=== PATIENT | female | born 1960 | race African-American/Black ===

== ENCOUNTER 2021-09-15 07:43 | Emergency (ER) | payer MEDICARE, MEDICAID ==
[~2021-09-15] VITALS: Ht 165.1 cm; Wt 73.0 kg
[2021-09-15] MEDS ORDERED: FAMOTIDINE 20MG/2ML VIAL IV STA (08:37)
[2021-09-15] MEDS ORDERED: MORPHINE SULFATE 4 MG/ML CPJ (NOT FOR IM USE) IV STA (08:37)
[2021-09-15] MEDS ORDERED: ONDANSETRON HCL 4MG/2ML INJ IV STA (08:37)
[2021-09-15] MEDS ORDERED: SODIUM CHLORIDE 0.9% 1,000 ML IV ONE (08:45)
[2021-09-15 09:19] LABS: BASOPHILS % 0.4 % (0.0-2.0); EOSINOPHILS % 0.2 % (0.0-5.0); HEMATOCRIT. 37.3 % (36.0-48.0); HEMOGLOBIN. 12.9 g/dL (12.0-16.0); LYMPHOCYTES % 7.4 % (20.0-50.0); MEAN CORPUSCULAR HEMOGLOBIN 32.8 pg (28.0-32.0); MEAN CORPUSCULAR VOLUME 94.8 fL (81.0-99.0); MEAN PLATELET VOLUME 9.2 fl (7.4-10.4); MONOCYTES % 2.7 % (2.0-8.0); NEUTROPHILS % 89.3 % (40.0-76.0); PLATELET 164 x1000/uL (130-400); RED BLOOD CELL COUNT 3.93 mill/uL (4.2-5.4); RED CELL DISTRIBUTION WIDTH 12.4 % (11.6-14.6)
[2021-09-15 09:26] LABS: CHLORIDE 112 mEq/L (98-107)
[2021-09-15 09:35] LABS: HCG SCREEN NEGATIVE
[2021-09-15 09:38] VITALS: BP 110/68
[2021-09-15] MEDS ORDERED: ONDA4TAB5 MT (13:34)
[2021-09-15] MEDS ORDERED: FAMO40TA70 MT (13:34)
== END 2021-09-15 13:49 | disposition home or self-care (01) ==
LOC: ER 08:09
DX: R10.84 Generalized abdominal pain (principal)
CPT/HCPCS: 36415; 80053; 83690; 84703; 85025; 96361; 96374; 96375; 99284; J2270; J2405; J3490; J7030